=== PATIENT | female | born 1935 | race African-American/Black ===

== ENCOUNTER 2024-11-16 03:22 | Inpatient (IN) | payer OTHER, MEDICAID ==
[2024-11-16 03:46] LABS: #Basophils 0.03 10x3/uL (0.0-0.2); #Eosinophils 0.13 10x3/uL (0.0-0.5); #Monocytes 0.52 10x3/uL (0.0-1.1); #Neutrophils 2.14 10x3/uL (1.5-8.4); %Basophils 0.6 % (0.0-2.0); %Eosinophils 2.7 % (0.0-6.0); %Lymphocytes 42.2 % (18.0-47.0); %Monocytes 10.6 % (0.0-10.0); %Neutrophils 43.7 % (40.0-75.0); Hematocrit 33.7 % (34.9-44.5); Hemoglobin 11.3 g/dL (12.0-15.5); Mean Corpuscular Hemoglobin 31.0 pg (27.0-33.0); Mean Corpuscular Volume 92.3 fL (81.6-98.3); Platelet Count 224 10x3/uL (150-450); Red Blood Cell (RBC) Count 3.65 10x6/uL (3.90-5.03); White Blood Cell (WBC) Count 4.90 10x3/uL (3.5-10.5)
[2024-11-16 04:10] LABS: ALT (SGPT) 12 U/L (Less than 34); AST (SGOT) 23 U/L (11-34); Albumin 3.9 g/dL (3.1-4.5); Alkaline Phosphatase 59 U/L (40-110); Anion Gap 13 mmol/L (10-20); BUN (Urea Nitrogen) 12 mg/dL (9.8-20.1); Bilirubin, Total 0.4 mg/dL (0.3-1.2); Calc. Creatinine Clearance 0 mL/min (70-130); Calcium 9.4 mg/dL (7.8-10.44); Carbon Dioxide 21 mmol/L (23-31); Chloride 100 mmol/L (98-107); Globulin 3.3 g/dL (2.4-3.5); Glucose 107 mg/dL (83-110); Potassium 3.9 mmol/L (3.5-5.1); Sodium 130 mmol/L (136-145)
[2024-11-16 04:19] LABS: Troponin I 0.011 ng/mL (< 0.028)
[2024-11-16] MEDS ORDERED: hydrALAZINE 20 MG/ML VIAL ONE (04:36)
[2024-11-16] MEDS ORDERED: diphenhydrAMINE 50 MG/ML VIAL ONE (04:37)
[2024-11-16] MEDS ORDERED: Metoclopramide HCl 10 MG (2 mL) VIAL ONE (04:37)
[2024-11-16] MEDS ORDERED: Ondansetron PF 4 MG/2 ML Vial ONE (04:37)
[2024-11-16] MEDS ORDERED: Ketorolac Tromethamine 30 MG (1 mL) VIAL ONE (05:15)
[2024-11-16 06:05] LABS: Glucose, Urine (Dipstick) Normal (Negative); Leukocyte Negative (Negative); Protein, Urine (Dipstick) 15 mg/dl (Neg-Trace); Specific Gravity, Urine 1.010 (1.005-1.030)
[2024-11-16 06:08] LABS: CAUTI Indications for Culture Dysuria,urgency,freq; RBC/HPF 0-3 HPF (0-3)
[2024-11-16 06:11] LABS: Bacteria/HPF None Seen HPF (None Seen); WBC/HPF 0-3 HPF (0-3)
[2024-11-16 06:12] LABS: Urine Culture Reflex No No
[2024-11-16] MEDS: hydrALAZINE 20 MG/ML VIAL SLOW IVP SCH (06:30)
[2024-11-16] MEDS: hydrALAZINE 20 MG/ML VIAL ONE (06:43)
[2024-11-16] MEDS: niCARdipine 25 MG in Sodium Chloride 0.9% 250 ML 250 ML IVPB SCH (06:43)
[2024-11-16] MEDS: Famotidine/PF 20 mg/2ml Vial SLOW IVP SCH (08:41)
[2024-11-16] MEDS: Enoxaparin 40 MG (0.4 mL) SYRINGE SC SCH (08:42)
[2024-11-16] MEDS: Famotidine 20 MG TAB PO SCH (08:42)
[2024-11-16] MEDS: Losartan 50 MG TAB PO SCH (08:43)
[2024-11-16] MEDS: Ondansetron PF 4 MG/2 ML Vial IVP PRN (08:45)
[2024-11-16] MEDS: NIFEdipine XL 60 MG ER.TAB PO SCH (10:00)
[2024-11-16] MEDS: Metoclopramide HCl 10 MG (2 mL) VIAL IVP PRN (13:44)
[2024-11-16] MEDS: Losartan 25 MG TAB PO SCH (16:59)
[2024-11-16 18:43] LABS: Magnesium 1.5 mg/dL (1.6-2.6)
[2024-11-16] MEDS ORDERED: Fioricet 325/50/40 mg Tablet PO PRN (20:41)
[2024-11-16] MEDS: Memantine 5 MG TAB PO SCH (21:00)
[2024-11-16] MEDS: Scopolamine 1 mg/72 hour Patch TD SCH (21:00)
[2024-11-16] MEDS: Bisacodyl 10 MG SUPP PR SCH (21:35)
[2024-11-17 03:23] LABS: #Basophils Less than 0.03 10x3/uL (0.0-0.2); #Eosinophils Less than 0.03 10x3/uL (0.0-0.5); #Monocytes 0.38 10x3/uL (0.0-1.1); #Neutrophils 7.19 10x3/uL (1.5-8.4); %Basophils 0.1 % (0.0-2.0); %Eosinophils 0.0 % (0.0-6.0); %Lymphocytes 7.9 % (18.0-47.0); %Monocytes 4.6 % (0.0-10.0); %Neutrophils 87.2 % (40.0-75.0); Hematocrit 31.5 % (34.9-44.5); Hemoglobin 10.8 g/dL (12.0-15.5); Mean Corpuscular Hemoglobin 30.8 pg (27.0-33.0); Mean Corpuscular Volume 89.7 fL (81.6-98.3); Platelet Count 187 10x3/uL (150-450); Red Blood Cell (RBC) Count 3.51 10x6/uL (3.90-5.03); White Blood Cell (WBC) Count 8.25 10x3/uL (3.5-10.5)
[2024-11-17 03:44] LABS: ALT (SGPT) 13 U/L (Less than 34); AST (SGOT) 31 U/L (11-34); Albumin 4.0 g/dL (3.1-4.5); Alkaline Phosphatase 60 U/L (40-110); Anion Gap 17 mmol/L (10-20); BUN (Urea Nitrogen) 10 mg/dL (9.8-20.1); Bilirubin, Total 0.5 mg/dL (0.3-1.2); Calc. Creatinine Clearance 59 mL/min (70-130); Calcium 8.9 mg/dL (7.8-10.44); Carbon Dioxide 20 mmol/L (23-31); Chloride 95 mmol/L (98-107); Globulin 3.4 g/dL (2.4-3.5); Glucose 152 mg/dL (83-110); Sodium 130 mmol/L (136-145)
[2024-11-17 03:46] LABS: Potassium 2.4 mmol/L (3.5-5.1)
[2024-11-17 04:09] LABS: Magnesium 1.4 mg/dL (1.6-2.6)
[2024-11-17] MEDS: Promethazine HCl 25 MG, Admixture Fee 1 EACH in Sodium Chloride 0.9% 50 ML IVPB PRN (04:29)
[2024-11-17] MEDS: Magnesium 2 GM/50 ML(in water) 2 GM in Premix 1 BAG IVPB SCH ×2 (04:37→08:25)
[2024-11-17] MEDS: Potassium Chloride 20 MEQ in Premix 1 BAG IVPB SCH (06:15)
[2024-11-17] MEDS: Aspirin Chewable 81 MG TAB PO SCH (08:27)
[2024-11-17] MEDS: Losartan 50 MG TAB PO SCH (08:28)
[2024-11-17] MEDS: Sertraline 100 MG TAB PO SCH (08:31)
[2024-11-17] MEDS: Atenolol 50 MG TAB PO SCH (08:33)
[2024-11-17] MEDS: Brimonidine Tartrate 0.2% Ophth Soln 5 ml Bottle L EYE SCH (08:36)
[2024-11-17] MEDS ORDERED: Gabapentin 300 MG CAP PO SCH (09:00)
[2024-11-17] MEDS: Gabapentin 300 MG CAP PO SCH (11:56)
[2024-11-17 14:26] LABS: Potassium 3.6 mmol/L (3.5-5.1)
[2024-11-17] MEDS: Mirtazapine 15 MG TAB PO SCH (20:26)
[2024-11-18] MEDS: Losartan 50 MG TAB PO SCH (08:17)
[2024-11-18 10:40] LABS: #Basophils Less than 0.03 10x3/uL (0.0-0.2); #Eosinophils Less than 0.03 10x3/uL (0.0-0.5); #Monocytes 0.52 10x3/uL (0.0-1.1); #Neutrophils 5.27 10x3/uL (1.5-8.4); %Basophils 0.1 % (0.0-2.0); %Eosinophils 0.1 % (0.0-6.0); %Lymphocytes 12.4 % (18.0-47.0); %Monocytes 7.8 % (0.0-10.0); %Neutrophils 79.2 % (40.0-75.0); Hematocrit 30.9 % (34.9-44.5); Hemoglobin 10.5 g/dL (12.0-15.5); Mean Corpuscular Hemoglobin 30.5 pg (27.0-33.0); Mean Corpuscular Volume 89.8 fL (81.6-98.3); Platelet Count 168 10x3/uL (150-450); Red Blood Cell (RBC) Count 3.44 10x6/uL (3.90-5.03); White Blood Cell (WBC) Count 6.67 10x3/uL (3.5-10.5)
[2024-11-18 10:56] LABS: Anion Gap 12 mmol/L (10-20); BUN (Urea Nitrogen) 14 mg/dL (9.8-20.1); Calc. Creatinine Clearance 54 mL/min (70-130); Calcium 9.0 mg/dL (7.8-10.44); Carbon Dioxide 24 mmol/L (23-31); Chloride 96 mmol/L (98-107); Glucose 117 mg/dL (83-110); Magnesium 2.6 mg/dL (1.6-2.6); Potassium 3.5 mmol/L (3.5-5.1); Sodium 128 mmol/L (136-145)
[2024-11-18 21:02] LABS: Osmolality, Serum 265 mOsm/kg (280-301)
[2024-11-19 01:24] LABS: Protein, Urine Random Quant 15 mg/dL (1-14)
[2024-11-19 05:27] LABS: #Basophils Less than 0.03 10x3/uL (0.0-0.2); #Eosinophils Less than 0.03 10x3/uL (0.0-0.5); #Monocytes 0.61 10x3/uL (0.0-1.1); #Neutrophils 4.18 10x3/uL (1.5-8.4); %Basophils 0.3 % (0.0-2.0); %Eosinophils 0.2 % (0.0-6.0); %Lymphocytes 22.6 % (18.0-47.0); %Monocytes 9.8 % (0.0-10.0); %Neutrophils 66.8 % (40.0-75.0); Hematocrit 31.8 % (34.9-44.5); Hemoglobin 10.9 g/dL (12.0-15.5); Mean Corpuscular Hemoglobin 30.8 pg (27.0-33.0); Mean Corpuscular Volume 89.8 fL (81.6-98.3); Platelet Count 215 10x3/uL (150-450); Red Blood Cell (RBC) Count 3.54 10x6/uL (3.90-5.03); White Blood Cell (WBC) Count 6.25 10x3/uL (3.5-10.5)
[2024-11-19 05:45] LABS: ALT (SGPT) 29 U/L (Less than 34); AST (SGOT) 59 U/L (11-34); Albumin 3.5 g/dL (3.1-4.5); Alkaline Phosphatase 66 U/L (40-110); Anion Gap 13 mmol/L (10-20); BUN (Urea Nitrogen) 13 mg/dL (9.8-20.1); Bilirubin, Total 0.5 mg/dL (0.3-1.2); Calc. Creatinine Clearance 52 mL/min (70-130); Calcium 9.2 mg/dL (7.8-10.44); Carbon Dioxide 24 mmol/L (23-31); Chloride 99 mmol/L (98-107); Globulin 3.6 g/dL (2.4-3.5); Glucose 93 mg/dL (83-110); Sodium 131 mmol/L (136-145)
[2024-11-19 06:00] LABS: Potassium 4.5 mmol/L (3.5-5.1)
[2024-11-19 13:39] LABS: Osmolality, Urine 252 mOsm/kg (50-1200)
[2024-11-19 13:57] LABS: Sodium, Urine 27 mmol/L (Not Available)
[2024-11-19] MEDS: PNEUMOC 20-VAL CONJ-DIP CRM/PF 0.5 ML SYRINGE IM ONE (16:54)
[2024-11-20] MEDS: hydrALAZINE 20 MG/ML VIAL SLOW IVP SCH (01:35)
[2024-11-20 05:14] LABS: Anion Gap 9 mmol/L (10-20); BUN (Urea Nitrogen) 11 mg/dL (9.8-20.1); Calc. Creatinine Clearance 53 mL/min (70-130); Calcium 9.8 mg/dL (7.8-10.44); Carbon Dioxide 28 mmol/L (23-31); Chloride 103 mmol/L (98-107); Glucose 97 mg/dL (83-110); Potassium 3.4 mmol/L (3.5-5.1); Sodium 137 mmol/L (136-145)
[2024-11-20 05:55] VITALS: BMI 27.8
[2024-11-20] MEDS: Losartan 50 MG TAB PO SCH (09:21)
[2024-11-20] MEDS: NIFEdipine XL 30 MG ER.TAB PO SCH (13:12)
[2024-11-21] MEDS: hydrALAZINE 20 MG/ML VIAL SLOW IVP PRN (01:09)
[2024-11-21] MEDS: Acetaminophen 325 MG TAB PO PRN (06:16)
[2024-11-21] MEDS ORDERED: NIFEdipine XL 90 MG ER.TAB PO SCH (09:00)
[2024-11-21 09:23] LABS: #Basophils 0.04 10x3/uL (0.0-0.2); #Eosinophils 0.06 10x3/uL (0.0-0.5); #Monocytes 0.61 10x3/uL (0.0-1.1); #Neutrophils 2.60 10x3/uL (1.5-8.4); %Basophils 0.7 % (0.0-2.0); %Eosinophils 1.1 % (0.0-6.0); %Lymphocytes 38.7 % (18.0-47.0); %Monocytes 11.3 % (0.0-10.0); %Neutrophils 48.0 % (40.0-75.0); Hematocrit 35.6 % (34.9-44.5); Hemoglobin 11.9 g/dL (12.0-15.5); Mean Corpuscular Hemoglobin 30.9 pg (27.0-33.0); Mean Corpuscular Volume 92.5 fL (81.6-98.3); Platelet Count 216 10x3/uL (150-450); Red Blood Cell (RBC) Count 3.85 10x6/uL (3.90-5.03); White Blood Cell (WBC) Count 5.42 10x3/uL (3.5-10.5)
[2024-11-21 09:36] LABS: ALT (SGPT) 23 U/L (Less than 34); AST (SGOT) 30 U/L (11-34); Albumin 3.4 g/dL (3.1-4.5); Alkaline Phosphatase 64 U/L (40-110); Anion Gap 10 mmol/L (10-20); BUN (Urea Nitrogen) 11 mg/dL (9.8-20.1); Bilirubin, Total 0.3 mg/dL (0.3-1.2); Calc. Creatinine Clearance 43 mL/min (70-130); Calcium 9.5 mg/dL (7.8-10.44); Carbon Dioxide 25 mmol/L (23-31); Chloride 103 mmol/L (98-107); Globulin 3.5 g/dL (2.4-3.5); Glucose 92 mg/dL (83-110); Potassium 3.4 mmol/L (3.5-5.1); Sodium 135 mmol/L (136-145)
[2024-11-21] MEDS: NIFEdipine XL 60 MG ER.TAB PO SCH (10:07)
[2024-11-22] MEDS: Milk Of Magnesia 30 ML UDCUP PO SCH (06:14)
[2024-11-22 09:17] VITALS: TEMP 98.2
[2024-11-22 14:08] VITALS: BP 125/54
== END 2024-11-22 15:28 | disposition home or self-care (01) | DRG 69 ==
LOC: CSHERS 03:22 → CSHICU 05:09 → OBSVTOIN 16:24 → CSHTELE 11-19 16:19
PROVIDERS: ADMIT Internal Medicine; ATTEND Internal Medicine
DX: G45.9 Transient cerebral ischemic attack, unspecified (principal); E87.1 Hypo-osmolality and hyponatremia; I10 Essential (primary) hypertension; E78.5 Hyperlipidemia, unspecified; H40.9 Unspecified glaucoma; R42 Dizziness and giddiness; M10.9 Gout, unspecified; E03.9 Hypothyroidism, unspecified; E87.6 Hypokalemia; Z79.890 Hormone replacement therapy; Z79.82 Long term (current) use of aspirin; Z79.899 Other long term (current) drug therapy
CPT/HCPCS: 36415; 70450; 70551; 74018; 74176; 76770; 80048; 80053; 81001; 82043; 83735; 83930; 83935; 84100; 84156; 84300; 84484; 85025; 93005; 93306; 93970; 96372; 96374; 96375; 96376; G0378; J0360; J1200; J1650; J1885; J2550; J2765; J3475; J3480; J7050; Q0162

== ENCOUNTER 2024-12-10 01:47 | Emergency (ER) | payer OTHER, MEDICAID ==
[2024-12-10 02:28] LABS: #Basophils 0.04 10x3/uL (0.0-0.2); #Eosinophils 0.17 10x3/uL (0.0-0.5); #Monocytes 0.44 10x3/uL (0.0-1.1); #Neutrophils 4.72 10x3/uL (1.5-8.4); %Basophils 0.6 % (0.0-2.0); %Eosinophils 2.4 % (0.0-6.0); %Lymphocytes 24.7 % (18.0-47.0); %Monocytes 6.1 % (0.0-10.0); %Neutrophils 65.6 % (40.0-75.0); Hematocrit 32.4 % (34.9-44.5); Hemoglobin 11.3 g/dL (12.0-15.5); Mean Corpuscular Hemoglobin 31.4 pg (27.0-33.0); Mean Corpuscular Volume 90.0 fL (81.6-98.3); Platelet Count 244 10x3/uL (150-450); Red Blood Cell (RBC) Count 3.60 10x6/uL (3.90-5.03); White Blood Cell (WBC) Count 7.18 10x3/uL (3.5-10.5)
[2024-12-10] MEDS ORDERED: Ondansetron PF 4 MG/2 ML Vial ONE (02:53)
[2024-12-10 03:47] LABS: ALT (SGPT) 9 U/L (Less than 34); AST (SGOT) 23 U/L (11-34); Albumin 3.8 g/dL (3.1-4.5); Alkaline Phosphatase 85 U/L (40-110); Anion Gap 12 mmol/L (10-20); BUN (Urea Nitrogen) 10 mg/dL (9.8-20.1); Bilirubin, Total 0.2 mg/dL (0.3-1.2); Calc. Creatinine Clearance 0 mL/min (70-130); Calcium 9.9 mg/dL (7.8-10.44); Carbon Dioxide 21 mmol/L (23-31); Chloride 101 mmol/L (98-107); Globulin 3.9 g/dL (2.4-3.5); Glucose 124 mg/dL (83-110); Magnesium 2.2 mg/dL (1.6-2.6); Potassium 3.9 mmol/L (3.5-5.1); Sodium 130 mmol/L (136-145)
[2024-12-10 04:12] LABS: Glucose, Urine (Dipstick) Normal (Negative); Leukocyte Negative (Negative); Protein, Urine (Dipstick) Negative (Neg-Trace); Specific Gravity, Urine 1.005 (1.005-1.030)
[2024-12-10 04:17] LABS: Troponin I Less than 0.010 ng/mL (< 0.028)
[2024-12-10 04:29] LABS: CAUTI Indications for Culture Pelvic or flank pain; RBC/HPF 0-3 HPF (0-3); WBC/HPF 0-3 HPF (0-3)
[2024-12-10 04:30] LABS: Bacteria/HPF Rare-Few HPF (None Seen)
[2024-12-10 04:31] LABS: Urine Culture Reflex No No
[2024-12-10] MEDS ORDERED: cefTRIAXone (ROCEPHIN) 1 GM VIAL ONE (05:02)
[2024-12-10] MEDS ORDERED: hydrALAZINE 20 MG/ML VIAL ONE (05:02)
[2024-12-10] MEDS ORDERED: Prochlorperazine 10 MG/2 ML VIAL ONE (07:24)
[2024-12-10] MEDS ORDERED: diphenhydrAMINE 50 MG/ML VIAL ONE (07:24)
== END 2024-12-10 08:38 | disposition home or self-care (01) ==
LOC: CSHERS 01:47
DX: R42 Dizziness and giddiness (principal); E86.0 Dehydration; E87.1 Hypo-osmolality and hyponatremia; N39.0 Urinary tract infection, site not specified; I10 Essential (primary) hypertension
CPT/HCPCS: 70450; 71045; 80053; 81001; 83735; 83880; 84484; 85025; 87428; 93005; J0360; J0696; J0780; J1200; 36415; 96361; 96374; 96375